=== PATIENT | female | born 1960 | race Caucasian/White ===

== ENCOUNTER 2017-12-16 16:09 | Emergency (ER) | payer MEDICAID ==
[2017-12-16 16:18] VITALS: BP 101/63
--- NOTE | 2017-12-16 16:20 | ER Report ---
History and Physical Time Seen By MD: 16:19 HPI/ROS CHIEF COMPLAINT: Dental pain HISTORY OF PRESENT ILLNESS: This is a 57-year-old female presents to the emergency department for right lower dental pain. Patient states over the last couple months she's had increased right lower dental pain. She has a long- standing history of dental caries, she is missing most of her teeth. Patient states she does have an appointment with a dentist in [place] this coming , the patient is requesting antibiotics. No chest pain or shortness breath, no nausea or vomiting, no fevers or chills. REVIEW OF SYSTEMS: Respiratory: No cough, no dyspnea. Cardiovascular: No chest pain, no palpitations. Gastrointestinal: No vomiting, no abdominal pain. Musculoskeletal: No back pain. Dental: As above. Allergies: Coded Allergies: Penicillins (Verified Allergy, Unknown, RASH, 12/16/17) ibuprofen (Verified Allergy, Unknown, 12/16/17) nausea ketorolac (Verified Allergy, Unknown, 12/16/17) makes me sleepy tramadol (Verified Allergy, Unknown, 12/16/17) not sure Home Meds Active Scripts Acetaminophen With Codeine # 3 (TYLENOL WITH CODEINE #3 TABLET) 1 Each Tablet, 1 EACH PO Q6H PRN for prn, #10 TAB 0 Refills Prov:JOSE JOHNSON [facility]- 12/16/17 Clindamycin Hcl (CLINDAMYCIN HCL) 300 Mg Capsule, 300 MG PO TID for 10 Days, #30 CAPSULE 0 Refills Prov:JOSE JOHNSON [facility]- 12/16/17 Past Medical/Surgical History The patient has a past medical and surgical history of poor dentition, multiple dental caries, tubal ligation. Reviewed Nurses Notes: Yes Constitutional Vital Sign - Last 24 Hours 12/16/17 16:18 Pulse 73 Resp 13 B/P (MAP) 101/63 Pulse Ox 93 O2 Delivery Room Air Physical Exam General Appearance: The patient is alert, has no immediate need for airway protection and no current signs of toxicity. Eyes: Pupils equal and round no injection. Dental: The majority of the patient's teeth are missing on the upper and lower, very mild erythema to the right lower gumline, no swelling or purulent drainage. Throat is clear and patent. Respiratory: Chest is non tender, lungs are clear to auscultation. Cardiac: regular rate and rhythm. Gastrointestinal: Abdomen is soft and non tender, no masses, bowel sounds normal. Musculoskeletal: Neck: Neck is supple and non tender. Extremities have full range of motion and are non tender. Skin: No rashes or lesions. DIFFERENTIAL DIAGNOSIS: After history and physical exam differential diagnosis was considered for dental abscess, dental caries, Medical Decision Making ED Course/Re-evaluation ED Course The patient was admitted to room. A history and physical were obtained. Differential diagnoses were considered. After evaluation of the patient and no definitive signs of abscess mild erythema to the right lower gumline with pain, no edema. The patient was started on clindamycin, given a prescription for T3. The patient was instructed to keep her appointment with the dentist in [place] this coming . Return to the ER for any other concerns or worsening symptoms. Patient was in agreement with this plan of care and discharged home. Decision to Disposition Date: Dec 16, 2017 Decision to Disposition Time: 16:37 Depart Departure Latest Vital Signs Vital Signs Date Time Temp Pulse Resp B/P (MAP) Pulse Ox O2 Delivery O2 Flow Rate FiO2 12/16/17 16:18 73 13 101/63 93 Room Air Impression: Primary Impression: Pain, dental Condition: Improved Disposition: HOME OR SELF-CARE New Scripts Acetaminophen With Codeine # 3 (TYLENOL WITH CODEINE #3 TABLET) 1 Each Tablet 1 EACH PO Q6H PRN for prn, #10 TAB 0 Refills Prov: JOSE JOHNSON-JOMAR 12/16/17 Clindamycin Hcl (CLINDAMYCIN HCL) 300 Mg Capsule 300 MG PO TID for 10 Days, #30 CAPSULE 0 Refills Prov: JOSE JOHNSON 12/16/17 Patient Instructions: Dental Caries (ED) Additional Instructions: Drink plenty of water. Get plenty of rest. Take the antibiotics as prescribed. Keep your appointment next with your dentist in [place]. Return to the ED for any other concerns or worsening symptoms. Take the T#3 as needed for severe pain, do not take regular Tylenol while taking the T#3. JOSE JOHNSON-BC Dec 16, 2017 16:20
[2017-12-16] MEDS ORDERED: AMOX-559 PO (16:41)
[2017-12-16] MEDS ORDERED: ACET-3017 PO (17:11)
[2017-12-16] MEDS ORDERED: CLIN300C99 PO (17:11)
== END 2017-12-16 16:52 | disposition home or self-care (01) ==
LOC: ER 16:18
DX: K08.89 Other specified disorders of teeth and supporting structures (principal)
CPT/HCPCS: 99281